=== PATIENT | male | born 1990 | race Two or more races ===

== ENCOUNTER 2019-02-16 22:41 | Emergency (ER) | payer SELFPAY ==
[~2019-02-16] VITALS: Ht 177.8 cm; Wt 81.6 kg
[2019-02-16] MEDS ORDERED: KETOROLAC 30 MG/1 ML IM ONE (23:30)
[2019-02-16] MEDS ORDERED: METHOCARBAMOL 750 MG TABLET PO ONE (23:30)
[2019-02-17] MEDS ORDERED: MORPHINE SULFATE 4 MG/ML, 1ML IVPush PRN (00:30)
[2019-02-17] MEDS ORDERED: ONDANSETRON 2MG/ML, 2ML IVPush ONE (00:30)
[2019-02-17] MEDS ORDERED: MORPHINE SULFATE 4 MG/ML, 1ML ONE (00:33)
[2019-02-17] MEDS ORDERED: ONDANSETRON 2MG/ML, 2ML ONE (00:33)
[2019-02-17 00:36] LABS: BASOPHILS # (AUTO) 0.05 x10^3/uL (0-0.1); BASOPHILS % (AUTO) 0 % (0-1); EOSINOPHILS # (AUTO) 0.11 x10^3/uL (0-0.4); EOSINOPHILS % (AUTO) 1 % (1-7); LYMPHOCYTES # (AUTO) 2.63 x10^3/uL (1-3.4); LYMPHOCYTES % (AUTO) 23 % (22-44); MD NO; MEAN CORPUSCULAR HEMOGLOBIN 31.8 pg (27.5-34.5); MEAN CORPUSCULAR HGB CONC 34.5 g/dL (33.2-36.2); MEAN CORPUSCULAR VOLUME 92.2 fL (81-97); MEAN PLATELET VOLUME 9.7 fL (7.4-10.4); MONOCYTES # (AUTO) 0.54 x10^3/uL (0.2-0.8); MONOCYTES % (AUTO) 5 % (2-9); NEUTROPHILS % (AUTO) 71 % (42-75); PLATELET COUNT 225 x10^3/uL (130-400); RED BLOOD COUNT 5.41 x10^6/uL (4.38-5.82)
[2019-02-17 00:49] LABS: ALANINE AMINOTRANSFERASE 31 U/L (12-78); ANION GAP 6 mmol/L (5-15); CALCIUM 9.3 mg/dL (8.5-10.1); CHLORIDE 109 mmol/L (98-107); CREATININE 0.87 mg/dL (0.7-1.3)
[2019-02-17 00:51] LABS: ALKALINE PHOSPHATASE 70 U/L (45-117); BILIRUBIN,TOTAL 0.4 mg/dL (0.2-1.0); TOTAL PROTEIN 7.4 g/dL (6.4-8.2)
[2019-02-17] MEDS ORDERED: KETOROLAC 30 MG/1 ML ONE (00:55)
[2019-02-17] MEDS ORDERED: METHOCARBAMOL 750 MG TABLET ONE (00:55)
[2019-02-17 01:52] LABS: MICROSCOPIC NOT IND
[2019-02-17 01:57] LABS: CULTURE INDICATED? NO
[2019-02-17 02:49] VITALS: BP 102/56
[2019-02-17] MEDS ORDERED: OMNIPAQUE 350 MG/ML, 100ML BOTTLE ONE (05:30)
== END 2019-02-17 02:51 | disposition home or self-care (01) ==
LOC: ED 02-17 01:00 → UNDOADMIN 02-17 01:20 → EDIP 02-17 01:20 → ED 02-17 02:51
DX: S16.1XXA Strain of muscle, fascia and tendon at neck level, initial encounter (principal); S39.012A Strain of muscle, fascia and tendon of lower back, initial encounter; R10.9 Unspecified abdominal pain; V49.59XA Passenger injured in collision with other motor vehicles in traffic accident, initial encounter; Y93.89 Activity, other specified; Y92.89 Other specified places as the place of occurrence of the external cause; Y99.8 Other external cause status
CPT/HCPCS: 36415; 71045; 72110; 72125; 73564; 74177; 80053; 81003; 83690; 85025; 93005; 96372; 96374; 96375; 99284; J1885; J2405; Q9967